=== PATIENT | female | born 1950 | race Caucasian/White ===

== ENCOUNTER 2016-08-25 03:00 | Inpatient (IN) | payer MEDICARE ==
--- NOTE | ~2016-08-25 | PN ---
Unit #: [id number] #: [id number] Patient: MELISA PETTY [id number] [facility] [address] [place] [address] [id number] I MR#: [id number] NAME: MELISA PETTY. ROOM: 77 Age: 65 Sex: F Admission Date: 08/25/2016 : 1950 Attending Physician: Marlo Mary M.D. Admitting Physician: Marlo Mary M.D. Primary Care Physician: Maria C Doctor Not In System [facility] PROGRESS NOTES DATE 08/29/2016 DISCUSSION Ms. Petty is a 65-year-old white female with substance abuse and mood disorder who was seen today and chart was reviewed and case was discussed with the staff. She was laying in her bed but was able to get up and seemed to be polite and pleasant and reports that she cannot sleep at night and Trazodone has not been effective and she would like the dosage to be increased. She also informed me that she met with her social sciences chair yesterday and rehab level of care was discussed and she was given a pamphlet on [facility] [place] and that she is interested in that. She also had a family visitation and family session coming up as her was a couple of hours away and social staff worker has been trying to schedule it. Meanwhile, she has been taking major depression and tolerating them fairly well with no reported side effects. MENTAL STATUS EXAMINATION An elderly white female who was casually dressed with fair personal hygiene, appears to be in no acute distress or discomfort. She was awake and alert on interaction with intact orientation. Her mood was anxious with congruent affect. She denies any suicidal or homicidal ideations. Also, denies any auditory or visual hallucinations. Her insight and judgement remains slightly impaired. TREATMENT PLAN 1. We will continue her on her current medications and treatment protocol. We will increase her Trazodone to 200 mg at bedtime. 2. We will continue to follow up. Dictated by... El Light/ricardo TD: 08/29/2016 23:46 JOB #: [id number] Unit #: [id number] #: [id number] Patient: MELISA PETTY PROGRESS NOTES Page 1 of 1 X Marlo Mary MD X PROGRESS NOTE
--- NOTE | ~2016-08-25 | PA ---
Unit #: [id number] #: [id number] Patient: [facility] [id number] [facility] [address] [place] [address] [id number] I MR#: [id number] NAME: MELISA PETTY. ROOM: P177 Age: 65 Sex: F Admission Date: 08/25/2016 : 1950 Date of Assessment: 08/25/2016 Attending Physician: Marlo Mary M.D. Admitting Physician: Marlo Mary M.D. Primary Care Physician: Generic Doctor Not In System PSYCHIATRIC ASSESSMENT DATE OF SERVICE 08/25/2016. IDENTIFYING DATA Ms. Petty is a 65-year-old white female, who is a resident of [place], [place] and was transferred to us from [facility] in [place], [place], where she presented to the hospital emergency room with a blood alcohol level of 0.120. CHIEF COMPLAINT "I took four drinks and I took 54 Ativan 2 mg each." HISTORY OF PRESENT ILLNESS Ms. Petty is a 65-year-old white female, who is a resident of [place], [place] and was taken to the [facility] in [place], [place] after an overdose on alcohol and excessive amount of Ativan stating that she had words with her son and she was distraught and crying and felt overwhelmed and started drinking around 3:30 in the afternoon and being torn between living and dying and took 54 Ativan 2 mg each in an apparent suicide attempt and reports drinking [place] in water every day. Reports suicide notes and notes on her cellphone as well and was medically cleared in the emergency room and then was transferred to us. SUBSTANCE ABUSE HISTORY The patient reports history of alcohol abuse and dependence. Reports that she has been drinking since she was 19 years old. PAST PSYCHIATRIC HISTORY The patient reports history of outpatient psychiatric treatment at [facility] and review of the medical records indicate that currently she is on a combination of Remeron and Zoloft. PAST MEDICAL HISTORY The patient's medical history is significant for hypertension. ALLERGIES Penicillin. PERSONAL AND SOCIAL HISTORY A 65-year-old white female, who reports that she is and lives alone and has poor social support system. MENTAL STATUS EXAMINATION Unit #: [id number] #: [id number] Patient: MELISA PETTY An elderly white female, who was casually dressed with fair personal hygiene, appears to be in no acute distress or discomfort. She was awake and alert with impaired attention and concentration. Her mood was anxious with a congruent affect. Her speech was slow and goal directed. She reports having suicidal ideation, but denies any homicidal ideations, and also denies any auditory or visual hallucinations. Her insight and judgment remain significantly impaired. DIAGNOSTIC IMPRESSION Psychiatric: Major depressive disorder, recurrent, moderate, without psychotic features; alcohol dependence, moderate. Medical: Hypertension. Stressors: Moderate psychosocial stressors. TREATMENT PLAN 1. The patient has presented with history of substance abuse and mood disorder, and has been decompensating and will need inpatient hospitalization for safety and stabilization. We will start her back on her home medications. We will adjust the medications and monitor response. 2. Supportive therapy was provided to the patient. 3. Safe, structured, and nourishing environment will be provided. ESTIMATED LENGTH OF STAY 5 to 7 days. ABILITY TO HELP SELF Limited. WILLINGNESS TO HELP SELF The patient appears to be willing to help self. STRENGTHS 1. Communicative. 2. Cooperative. PROBLEMS 1. Chronic dysphoric symptoms. 2. Poor social support system. DISCHARGE CRITERIA This will be contingent upon the patient's ability to show resolution of her depression and anxiety and her ability to stay safe to herself, particularly after discharge from the hospital. Dictated by... Marlo Mary M.D. ELVA/richard TD: 08/26/2016 14:06 JOB #: [id number] Unit #: [id number] #: [id number] Patient: MELISA PETTY PSYCHIATRIC ASSESSMENT Page 1 of 1 X Marlo Mary MD X PSYCHIATRIC ASSESSMENT
--- NOTE | ~2016-08-25 | PN ---
Unit #: [id number] #: [id number] Patient: MELISA PETTY [id number] [facility] [address] [place] [address] [id number] MR#: [id number] NAME: MELISA PETTY. ROOM: [facility] Age: 65 Sex: F Admission Date: 08/25/2016 : 1950 Attending Physician: Marlo Mary M.D. Admitting Physician: Marlo Mary M.D. Primary Care Physician: Maria C Doctor Not In System [facility] PROGRESS NOTES DATE 08/28/2016 DISCUSSION Ms. Petty is a 65-year-old white female who was seen today and chart was reviewed and case was discussed with the staff. She has been doing fairly well and has been showing improvement in depression and anxiety. Meanwhile, she has been cooperative with treatment recommendations as she has been taking the medications and tolerating them fairly well with no reported side effects. MENTAL STATUS EXAMINATION An elderly white female who was casually dressed with fair personal hygiene, appears to be in no acute distress or discomfort. She was awake and alert on interaction with intact orientation. Her mood was anxious with congruent affect. She denies any suicidal or homicidal ideations. Her insight and judgement remains slightly impaired. TREATMENT PLAN 1. We will continue her on her current medications and treatment protocol. We will monitor her response the patient the medication and make further adjustments as needed. 2. We will continue to follow up. Dictated by... El Light/ricardo TD: 08/29/2016 01:51 JOB #: [id number] Unit #: [id number] #: [id number] Patient: MELISA PETTY [facility] PROGRESS NOTES Page 1 of 1 X Marlo Mary MD X PROGRESS NOTE
--- NOTE | ~2016-08-25 | PN ---
Unit #: [id number] #: [id number] Patient: MELISA PETTY [id number] [facility] [address] [place] [address] [id number] I MR#: [id number] NAME: MELISA PETTY. ROOM: [facility] Age: 65 Sex: F Admission Date: 08/25/2016 : 1950 Attending Physician: Marlo Mary M.D. Admitting Physician: Marlo Mary M.D. Primary Care Physician: Maria C Doctor Not In System [facility] PROGRESS NOTES DATE 08/30/2016 DISCUSSION Ms. Petty is a 65-year-old white female who was seen today and chart was reviewed and case was discussed with the staff. She has been anxious, withdrawn and rather seclusive to herself. Meanwhile, she has been cooperative with treatment recommendations and has been taking medications and tolerating them fairly well with no reported side effects. MENTAL STATUS EXAMINATION An elderly white female who was casually dressed with fair personal hygiene and appears to going through distress or discomfort. She was awake and alert with impaired attention and concentration. Her mood was anxious with congruent affect. She denies any suicidal or homicidal ideation. Her insight and judgement remains slightly impaired. TREATMENT PLAN 1. Will continue on current medications and treatment protocol. Will monitor her response to the medications and make further adjustments as needed. 2. Will continue to follow up. Dictated by... Marlo Mary M.D. IAA/soumya TD: 08/30/2016 21:03 JOB #: [id number] Unit #: [id number] #: [id number] Patient: MELISA PETTY PROGRESS NOTES Page 1 of 1 X Marlo Mary MD PROGRESS NOTE
--- NOTE | ~2016-08-25 | HP ---
Unit #: [id number] #: [id number] Patient: MELISA PETTY [id number] [place] [address] [id number] I MR#: [id number] NAME: MELISA PETTY. ROOM: [facility] Age: 65 Sex: F Admission Date: 08/25/2016 : 1950 Attending Physician: Marlo Mary M.D. Admitting Physician: Marlo Mary M.D. Primary Care Physician: Generic Doctor Not In System HISTORY AND PHYSICAL HISTORY OF PRESENT ILLNESS The patient is a 65-year-old female admitted to [facility] on 08/25/2016 to detox from alcohol and for suicidal ideations. PAST MEDICAL HISTORY 1. Alcohol abuse 2. Hypertension 3. Hyperlipidemia 4. GERD PAST SURGICAL HISTORY 1. Wrist surgery 2. Right ankle 3. Splenectomy 4. Hysterectomy 5. Appendectomy SOCIAL HISTORY The patient is retired. She lives alone. She denies tobacco and drug use but drinks several drinks per day. FAMILY MEDICAL HISTORY Noncontributory. ALLERGIES Penicillin CURRENT MEDICATIONS Include Remeron, Zoloft, losartan, HCTZ, pravastatin, Zyrtec, Protonix and Valtrex. REVIEW OF SYSTEMS CONSTITUTIONAL: No fever or chills. HEENT: Denies any sore throat, ear pain or runny nose. CARDIOVASCULAR: Denies chest pain, irregular heart rhythm or palpitations. CHEST: Denies shortness of breath or cough. No hemoptysis. GASTROINTESTINAL: Denies nausea, vomiting, diarrhea or chronic constipation. ENDOCRINE: Denies history of increased thirst or urination. No recent significant weight loss or gain. GENITOURINARY: Denies dysuria, frequency, or hematuria. SKIN: Denies any rashes. HEMATOLOGIC: Denies history of increased bleeding or bruising. Unit #: [id number] #: [id number] Patient: MELISA PETTY MUSCULOSKELETAL: Denies any hot, swollen joints. No generalized muscle pain. NEUROLOGIC: Denies problems with vision or speech. No frequent, severe headaches. No numbness, tingling or weakness in any extremities. Denies loss of bladder or bowel control. PHYSICAL EXAM GENERAL: She is awake, alert and oriented in no acute distress. VITAL SIGNS: Temperature 98.4, heart rate 84, respiration 12, blood pressure 103/64. HEIGHT: 5'4". WEIGHT: 143 pounds. SKIN: Warm and dry without rash or lesion. HEENT: Normocephalic. TMs not viewed. Oral and nasal passages clear. Conjunctivae clear. PERRLA. EOMs intact. NECK: Supple without lymphadenopathy or thyromegaly. HEART: Regular rate and rhythm without murmur. LUNGS: Clear. ABDOMEN: Soft, nontender. : Not done. EXTREMITIES: No evidence of cyanosis, clubbing or edema. Moves all without focal deficit. NEUROLOGICAL: Grossly within normal limits. Cranial Nerves: II: Visual raya are intact. III, IV AND : Extraocular movements are intact. Pupils are equal, round and reactive to light. V: Facial sensation is grossly normal. VII: Facial movements and expression are normal. VIII: Auditory acuity grossly intact. IX, X: Uvula is midline. Phonation is normal. XI: Patient shrugs shoulders and turns head normally. XII: Tongue protrudes in the midline. Sensory and Motor Function: Sensory and motor sensation is grossly normal. Motor: moves all extremities well. IMPRESSION 1. Psychiatric admission 2. Alcohol dependence 3. Hypertension 4. Hyperlipidemia 5. GERD RECOMMENDATIONS Psychiatric per psychiatrist. MEDICAL: No contraindication to participate in facility activities. MEDICAL PROGNOSIS Good MEDICAL CONDITION Stable Dictated by... Meliza Cat A.P.R.N. Unit #: [id number] #: [id number] Patient: MELISA PETTY RM/ricardo TD: 08/26/2016 21:56 JOB #: [id number] HISTORY AND PHYSICAL Page 1 of 1 X MELIZA CAT APRN HISTORY AND PHYSICAL
--- NOTE | ~2016-08-25 | CO ---
Unit #: [id number] #: [id number] Patient: MELISA PETTY [id number] [place] [address] [id number] I MR#: [id number] NAME: MELISA PETTY. ROOM: [facility] Age: 65 Sex: F Admission Date: 08/25/2016 : 1950 Attending Physician: Marlo Mary M.D. Primary Care Physician: Generic Doctor Not In System Consultation Date: 08/26/2016 CONSULTATION REPORT JOB NOTE: DICTATED FOR NOT DICTATED HISTORY OF PRESENT ILLNESS Melisa reports that she has been having burning with urination for the past few days. She also has had an increase in frequency and she is urinating about 5 times a day. Also wakes up nightly at least once to pee, which is not typical for her. She has not noticed any blood in her urine or foul odor. She does have some left-sided abdominal pain, but recently had a rib fracture and believes that the pain is being caused by that. No back pain. No fever, muscle aches, or chills. No other complaints. PHYSICAL EXAMINATION CARDIAC: Regular rate and rhythm. No murmur, gallop, or rub. RESPIRATORY: Clear to auscultation bilaterally. ABDOMEN: Bowel sounds positive in all 4 quadrants. No abdominal tenderness to palpation. No CVA tenderness or flank pain. DIAGNOSTIC STUDIES LABORATORY RESULTS: UA at [facility] on 08/24/2016 showed 2+ leukocytes, 4+ bacteria, but positive epithelial cells. UA here is pending. ASSESSMENT AND PLAN Urinary tract infection. We will begin Bactrim DS 1 tab p.o. b.i.d. for 3 days. Please notify if symptoms are unresolved. Dictated by... Mey Clemente A.P.R.N. for El Gibson/richard TD: 08/26/2016 22:34 JOB #: [id number] Unit #: [id number] #: [id number] Patient: MELISA PETTY CONSULTATION REPORT Page 1 of 1 X MEY RODAS APRN CONSULTATION REPORT
--- NOTE | ~2016-08-25 | DS ---
Unit #: [id number] #: [id number] Patient: [facility] PETTY [id number] [facility] [address] [place] [address] [id number] I MR#: [id number] NAME: MELISA PETTY. [facility]OM: [facility] Age: 65 Sex: F Admission Date: 08/25/2016 : 1950 Discharge Date: 08/31/2016 Attending Physician: Marlo Mary M.D. Primary Care Physician: Generic Doctor Not In System DISCHARGE SUMMARY IDENTIFYING DATA Ms. Petty is a 65-year-old white female who was brought to the hospital, and has been self-referred. DISCHARGE DIAGNOSES Psychiatric: Major depressive disorder, recurrent, moderate, without psychotic features; alcohol dependence, moderate and acute withdrawal. Medical: Hypertension, dyslipidemia, and gastroesophageal reflux disease. Stressors: Moderate psychosocial stressors. HISTORY OF PRESENT ILLNESS Please see initial psychiatric evaluation for details. PAST PSYCHIATRIC HISTORY Please see initial psychiatric evaluation for details. PAST MEDICAL HISTORY Please see initial psychiatric evaluation for details. HOSPITAL COURSE The patient was admitted to the adult chemical dependency unit at [facility] and was oriented to the hospital environment. Routine p.r.n. medications were initiated, and she was started back on her home medications including Remeron and Zoloft, and alcohol detox protocol was initiated and she was closely monitored. She was taking the medications regularly and was tolerating them fairly well, and was able to come out of the detox without any complications, and was willing to continue treatment on an outpatient basis and as such, it was decided that she will be discharged home and will continue treatment on an outpatient basis. DISCHARGE CONDITION Stable. PROGNOSIS Fair. Dictated by... Marlo Mary M.D. IAA/modl Unit #: [id number] #: [id number] Patient: MELISA PETTY TD: 09/10/2016 13:36 JOB #: [id number] DISCHARGE SUMMARY Page 1 of 1 X Marlo Mary MD X DISCHARGE SUMMARY
--- NOTE | ~2016-08-25 | PN ---
Unit #: [id number] #: [id number] Patient: MELISA PETTY [id number] [facility] [address] [place] [address] [id number] MR#: [id number] NAME: MELISA PETTY. ROOM: [facility] Age: 65 Sex: F Admission Date: 08/25/2016 : 1950 Attending Physician: Marlo Mary M.D. Admitting Physician: Marlo Mary M.D. Primary Care Physician: Generic Doctor Not In System [facility] PROGRESS NOTES DATE OF SERVICE: 08/27/2016 SUBJECTIVE Ms. Petty is a 65-year-old white female with mood disorder, who was seen today and chart was reviewed, and case was discussed with the staff. She has been anxious, withdrawn, depressed, and rather seclusive to herself, though has been cooperative with treatment recommendation. She has been taking medications and tolerating them fairly well with no reported side effects. MENTAL STATUS EXAMINATION Young white female who was casually dressed with fair personal hygiene, appears to be in no acute distress or discomfort. She was awake and alert on interaction with intact orientation. Her mood was anxious with a congruent affect. She denies any suicidal or homicidal ideations and also denies any auditory or visual hallucinations. Her insight and judgment remain slightly impaired. TREATMENT PLAN 1. We will continue on her current medications and treatment protocol. We will monitor her response to medications and make further adjustments as needed. 2. We will continue to follow up. Dictated by... El Light/richard TD: 08/28/2016 06:56 JOB #: [id number] Unit #: [id number] #: [id number] Patient: MELISA PETTY [facility] PROGRESS NOTES Page 1 of 1 X Marlo Mary MD PROGRESS NOTE
--- NOTE | ~2016-08-25 | PN ---
Unit #: [id number] #: [id number] Patient: MELISA PETTY [id number] [facility] [address] [place] [address] [id number] MR#: [id number] NAME: MELISA PETTY. ROOM: [facility] Age: 65 Sex: F Admission Date: 08/25/2016 : 1950 Attending Physician: Marlo Mary M.D. Admitting Physician: Marlo Mary M.D. Primary Care Physician: Generic Doctor Not In System [facility] PROGRESS NOTES DATE 08/31/2016 DISCUSSION Ms. Petty is a 65-year-old white female with substance abuse and mood disorder who was seen today and chart was reviewed and case was discussed with the staff. She has been anxious and has been restless and has been wanting to leave while social service technician are trying [facility] [place]. She states that her sister and older son are coming in for visitation at 3 o'clock this afternoon and that she is going to leave with them but I am hoping family would be able to do some interventions and encourage her to comply with treatment recommendations. MENTAL STATUS EXAMINATION An elderly white female who was casually dressed with fair personal hygiene and appears to be in no acute distress or discomfort. She was awake and alert with impaired attention and concentration. Her mood was anxious with congruent affect. She denies any suicidal or homicidal ideations. Her insight and judgement remains slightly impaired. TREATMENT PLAN 1. Will continue on current medications and treatment protocol. Will monitor her response to the medications and make further adjustments as needed. 2. Will continue to follow up. Dictated by... El Light/soumya TD: 08/31/2016 20:37 JOB #: [id number] Unit #: [id number] #: [id number] Patient: MELISA PETTYRONNIE PROGRESS NOTES Page 1 of 1 X Marlo Mary MD PROGRESS NOTE
--- NOTE | ~2016-08-25 | PN ---
Unit #: [id number] #: [id number] Patient: MELISA PETTY [id number] [facility] [address] [place] [address] [id number] MR#: [id number] NAME: MELISA PETTY. ROOM: [facility] Age: 65 Sex: F Admission Date: 08/25/2016 : 1950 Attending Physician: Marlo Mary M.D. Admitting Physician: Marlo Mary M.D. Primary Care Physician: Generic Doctor Not In System [facility] PROGRESS NOTES DATE OF SERVICE: 08/26/2016 SUBJECTIVE Ms. Cottrell is a 65-year-old white female with mood disorder and alcohol dependence, who was seen today and chart was reviewed and case was discussed with the staff. She has been reporting feeling better than yesterday and it appears that she is actively trying to mask and minimize the symptoms on her presentation. Meanwhile, she has been taking medications and tolerating them fairly well with no reported side effects. MENTAL STATUS EXAMINATION An elderly white female who was casually dressed with fair personal hygiene, appears to be in no acute distress or discomfort. She was awake and alert on interaction with intact orientation. Her mood was anxious with a congruent affect. She denies any suicidal or homicidal ideation. Her insight and judgment remain slightly impaired. TREATMENT PLAN 1. We will continue on her current medications and treatment protocol. We will monitor her response and make further adjustments as needed. 2. We will continue to follow up. Dictated by... El Light/richard TD: 08/28/2016 01:24 JOB #: [id number] [facility] PROGRESS NOTES Page 1 of 1 X Marlo Mary MD X PROGRESS NOTE
[2016-08-26 11:58] LABS: BASOPHIL# 0.1 X10e3 (0-0.3); BASOPHIL% 1.3 % (0-2.5); EOSINOPHIL# 0.2 X10e3 (0-0.7); EOSINOPHIL% 2.5 % (0.0-7.0); HEMATOCRIT 37.8 % (35.0-45.0); HEMOGLOBIN 12.4 gm/dL (12.0-16.0); LYMPHOCYTE# 3.9 X10e3 (1.0-3.5); LYMPHOCYTE% 46.2 % (17.0-45.0); MEAN CELL VOLUME 100.9 FL (83-96); MEAN CORPUSCULAR HEMOGLOBIN 33.1 PG (28-34); MEAN CORPUSCULAR HGB CONC 32.8 g/dL (30-36); MEAN PLATELET VOLUME 9.5 FL (6.5-11.5); MONOCYTE# 0.8 X10e3 (0-1.0); MONOCYTE% 9.1 % (3.0-12.0); NEUTROPHIL# 3.5 X10e3 (1.5-7.1); NEUTROPHIL% 40.9 % (40-75); PLATELET COUNT 350 X10e3 (140-420); RED BLOOD COUNT 3.75 X10e (3.90-5.30); WHITE BLOOD COUNT 8.5 X10e3 (4.0-10.5)
[2016-08-26 12:01] LABS: DIFF IND NO
[2016-08-26 12:36] LABS: ALBUMIN SERUM 3.8 g/dL (3.5-5.0); BUN/CREATININE RATIO 23.33; CALCIUM SERUM 9.3 mg/dL (8.4-10.2); CREATININE SERUM 0.6 mg/dL (0.6-1.4); POTASSIUM 3.8 mmol/L (3.5-5.1); PROTEIN TOTAL SERUM 6.7 g/dL (6.0-8.3)
[2016-08-27 09:38] LABS: URINE APPEARANCE CLOUDY; URINE BILIRUBIN NEG (NEG); URINE BLOOD NEG (NEG); URINE COLOR YELLOW; URINE GLUCOSE NEG (NEG); URINE KETONE NEG (NEG); URINE LEUKOCYTE ESTERASE 3+ (NEG); URINE NITRATE POS (NEG); URINE PH 6.5 (5-8); URINE PROTEIN NEG (NEG); URINE UROBILINOGEN 0.2 MG/DL (NEG)
[2016-08-27 09:44] LABS: U HYALINE CASTS AUWI 0-2 /[LPF]; URBCS1 AUWI 0-2 /[HPF] (0-2); URINE BACTERIA AUWI 4+ (NEGATIVE); URINE SQUAMOUS EPITHELIAL CELL FEW /[HPF]
[2016-08-27 10:27] LABS: AMPHETAMINE NEG (NEG); BARBITURATES NEG (NEG); BENZODIAZEPINES POS (NEG); COCAINE NEG (NEG); MARIJUANA NEG (NEG); OPIATES NEG (NEG); TRICYCLIC ANTIDEPRESSANTS NEG (NEG); U METHADONE NEG (NEG)
== END 2016-08-31 15:35 | DRG 885 ==
LOC: P1E 13:06
PROVIDERS: Psychiatry & Neurology Psychiatry
DX: F33.1 Major depressive disorder, recurrent, moderate (principal); R45.851 Suicidal ideations; I10 Essential (primary) hypertension; N39.0 Urinary tract infection, site not specified; F10.20 Alcohol dependence, uncomplicated; E78.5 Hyperlipidemia, unspecified; K21.9 Gastro-esophageal reflux disease without esophagitis; Z88.0 Allergy status to penicillin
CPT/HCPCS: 80053; 80307; 81003; 85025; 86592